=== PATIENT | male | born 1955 | race Caucasian/White ===

== ENCOUNTER 2023-11-30 13:24 | Emergency (ER) | payer MEDICARE ==
[2023-11-30] MEDS ORDERED: Sodium Chloride 0.9% 10 ML Syringe FLUSH PRN (14:03)
== END 2023-11-30 14:25 | disposition left against medical advice (07) ==
LOC: JD.ED 13:24
DX: Z53.21 Procedure and treatment not carried out due to patient leaving prior to being seen by health care provider (principal)

== ENCOUNTER 2024-02-12 15:16 | Emergency (ER) | payer MEDICARE ==
[2024-02-12] MEDS: HYDROmorphone 0.5 MG/0.5 ML Syringe IVPUSH ONE (16:08)
[2024-02-12] MEDS: Sodium Chloride 0.9% 1,000 ML IV SCH (16:11)
[2024-02-12] MEDS: Sodium Chloride 0.9% 10 ML Syringe FLUSH PRN (16:11)
[2024-02-12 16:14] LABS: BASOPHILS PERCENT AUTO 0.3 % (0.0-1.0); EOSINOPHILS ABSOLUTE AUTO 0.1 K/mm3 (0.0-0.4); EOSINOPHILS PERCENT AUTO 0.7 % (0.0-6.0); HEMATOCRIT 44.3 % (42.0-52.0); HEMOGLOBIN 14.7 gm/dl (14.0-18.0); IMMATURE GRAN ABSOLUTE AUTO 0.04 K/mm3 (0.00-0.05); IMMATURE GRAN PERCENT AUTO 0.3 % (0.0-0.4); LYMPHOCYTES ABSOLUTE AUTO 1.3 K/mm3 (1.0-4.8); LYMPHOCYTES PERCENT AUTO 10.1 % (24.0-44.0); MEAN CORPUSCULAR HEMOGLOBIN 32.2 pg (28.0-32.0); MEAN CORPUSCULAR HGB CONC 33.2 g/dl (32.0-36.0); MEAN CORPUSCULAR VOLUME 97.1 fl (83.0-99.0); MEAN PLATELET VOLUME 10.2 fl (9.4-12.4); MONOCYTES ABSOLUTE AUTO 0.8 K/mm3 (0.0-0.8); MONOCYTES PERCENT AUTO 6.5 % (0.0-8.0); NEUTROPHILS ABSOLUTE AUTO 10.5 K/mm3 (1.8-7.7); NEUTROPHILS PERCENT AUTO 82.1 % (41.0-71.0); PLATELET COUNT,PLT 176 K/mm3 (150-400); RED BLOOD CELL COUNT 4.56 M/mm3 (4.52-5.90); WHITE BLOOD CELL COUNT,WBC 12.82 K/mm3 (3.9-11.3)
[2024-02-12 16:20] LABS: APPEARANCE,URINE CLOUDY (Clear); BILIRUBIN,URINE NEGATIVE (Negative); COLOR,URINE AMBER (Yellow); GLUCOSE,URINE NEGATIVE (Negative); KETONES,URINE NEGATIVE (Negative); LEUKOCYTE ESTERASE,URINE 1+ (Negative); NITRITE,URINE POSITIVE (Negative); OCCULT BLOOD,URINE 3+ (Negative); PROTEIN,URINE 2+ (Negative)
[2024-02-12 16:29] LABS: BACTERIA,URINE MODERATE /hpf (FEW); MUCUS,URINE FEW /hpf (FEW); RBC,URINE 75-100 /hpf (0-5); SQUAMOUS EPITHELIAL CELLS,UR 0-5 /hpf (0-5); WBC,URINE 50-75 /hpf (0-5)
[2024-02-12 16:41] LABS: A/G RATIO 0.9 (1-2); ALANINE AMINOTRANSFERASE,ALT 21 U/L (16-63); ALBUMIN 3.2 g/dl (3.4-5.0); ALKALINE PHOSPHATASE 78 U/L (46-116); ANION GAP 12.2 (5-15); ASPARTATE AMNIOTRANSFERASE,AST 13 U/L (15-37); BILIRUBIN TOTAL 0.6 mg/dL (0.2-1.0); BLOOD UREA NITROGEN,BUN 25 mg/dL (7-18); BUN/CREATININE RATIO 19.2 (14-18); CARBON DIOXIDE,CO2 29 mEq/L (21-32); CHLORIDE,CL 104 mEq/L (98-107); CREATININE 1.3 mg/dL (0.7-1.3); ESTIMATED GFR 60 mL/min (>60); GLUCOSE RANDOM 138 mg/dL (70-99); LIPASE 54 U/L (16-77); POTASSIUM,K 4.2 mEq/L (3.5-5.1); PROTEIN TOTAL,TP 6.8 g/dl (6.4-8.2); SODIUM,NA 141 mEq/L (136-145)
== END 2024-02-12 18:24 | disposition home or self-care (01) ==
LOC: JD.ED 15:16
DX: N39.0 Urinary tract infection, site not specified (principal); J44.9 Chronic obstructive pulmonary disease, unspecified; F17.210 Nicotine dependence, cigarettes, uncomplicated; E11.9 Type 2 diabetes mellitus without complications; Z95.5 Presence of coronary angioplasty implant and graft
CPT/HCPCS: 36415; 74176; 80053; 81001; 83690; 85025; 87086; 96361; 96374; 99284; J1170; J3490; J7030; 87088; 87186

== ENCOUNTER 2024-02-17 14:18 | Inpatient (IN) | payer MEDICARE ==
[2024-02-17] MEDS: Morphine 4 MG/ML Syringe IVPUSH ONE ×2 (15:35→18:11)
[2024-02-17 15:55] LABS: BASOPHILS ABSOLUTE AUTO 0.1 K/mm3 (0.0-0.2); BASOPHILS PERCENT AUTO 0.8 % (0.0-1.0); EOSINOPHILS ABSOLUTE AUTO 0.1 K/mm3 (0.0-0.4); EOSINOPHILS PERCENT AUTO 0.6 % (0.0-6.0); HEMATOCRIT 46.7 % (42.0-52.0); HEMOGLOBIN 15.6 gm/dl (14.0-18.0); IMMATURE GRAN ABSOLUTE AUTO 0.05 K/mm3 (0.00-0.05); IMMATURE GRAN PERCENT AUTO 0.4 % (0.0-0.4); LYMPHOCYTES ABSOLUTE AUTO 1.9 K/mm3 (1.0-4.8); LYMPHOCYTES PERCENT AUTO 16.1 % (24.0-44.0); MEAN CORPUSCULAR HEMOGLOBIN 32.4 pg (28.0-32.0); MEAN CORPUSCULAR HGB CONC 33.4 g/dl (32.0-36.0); MEAN CORPUSCULAR VOLUME 97.1 fl (83.0-99.0); MEAN PLATELET VOLUME 10.3 fl (9.4-12.4); MONOCYTES ABSOLUTE AUTO 0.7 K/mm3 (0.0-0.8); MONOCYTES PERCENT AUTO 6.3 % (0.0-8.0); NEUTROPHILS ABSOLUTE AUTO 8.7 K/mm3 (1.8-7.7); NEUTROPHILS PERCENT AUTO 75.8 % (41.0-71.0); PLATELET COUNT,PLT 218 K/mm3 (150-400); RED BLOOD CELL COUNT 4.81 M/mm3 (4.52-5.90); WHITE BLOOD CELL COUNT,WBC 11.48 K/mm3 (3.9-11.3)
[2024-02-17 15:58] LABS: APPEARANCE,URINE TURBID (Clear); BILIRUBIN,URINE 1+ (Negative); COLOR,URINE BROWN (Yellow); GLUCOSE,URINE NEGATIVE (Negative); KETONES,URINE NEGATIVE (Negative); LEUKOCYTE ESTERASE,URINE 3+ (Negative); NITRITE,URINE POSITIVE (Negative); OCCULT BLOOD,URINE 3+ (Negative); PROTEIN,URINE 2+ (Negative)
[2024-02-17 16:31] LABS: ALBUMIN 3.5 g/dl (3.4-5.0); ANION GAP 16.8 (5-15); BILIRUBIN TOTAL 0.5 mg/dL (0.2-1.0); BUN/CREATININE RATIO 19.2 (14-18); CALCIUM 9.3 mg/dL (8.5-10.1); CREATININE 1.3 mg/dL (0.7-1.3); EST CRCL DRUG DOSING (CG) 48.85 mL/min; POTASSIUM,K 4.8 mEq/L (3.5-5.1); PROTEIN TOTAL,TP 7.2 g/dl (6.4-8.2)
[2024-02-17 16:41] LABS: BACTERIA,URINE MODERATE /hpf (FEW); RBC,URINE >100 /hpf (0-5); SQUAMOUS EPITHELIAL CELLS,UR 0-5 /hpf (0-5)
[2024-02-17 16:42] LABS: MUCUS,URINE FEW /hpf (FEW)
[2024-02-17] MEDS: Sodium Chloride 0.9% 1,000 ML IV ONE (18:17)
[2024-02-17] MEDS: Piperacillin/Tazobactam 4.5 GM in Sodium Chloride 0.9% 100 ML IV ONE (18:17)
[2024-02-17] MEDS ORDERED: Ondansetron 4 MG/2 ML SDV IV PRN (18:56)
[2024-02-17] MEDS ORDERED: Polyethylene Glycol 3350 Powder 17 GM Packet PO PRN (18:56)
[2024-02-17] MEDS ORDERED: Docusate Sodium 100 MG Cap PO PRN (18:56)
[2024-02-17] MEDS ORDERED: Ondansetron 4 MG Tab.DIS PO PRN (18:56)
[2024-02-17] MEDS: Morphine 2 MG/ML SYRINGE IVPUSH PRN (21:27)
[2024-02-17] MEDS: Dextrose 5%-0.45% NaCl 1,000 ML IV SCH (21:31)
[2024-02-17] MEDS: Nicotine 21 MG/24 Hr Patch TRDERM SCH (22:31)
[2024-02-17] MEDS: Heparin Sodium 5,000 Units/ML Vial SUBCUT SCH (22:32)
[2024-02-17] MEDS: Piperacillin/Tazobactam 4.5 GM in Sodium Chloride 0.9% 100 ML IV SCH ×2 (22:36→23:00)
[2024-02-17] MEDS: Acetaminophen/HYDROcodone 325-5 MG Tab PO PRN (22:37)
[2024-02-18] MEDS: Oxybutynin 5 MG Tab PO PRN (07:44)
[2024-02-18 08:18] LABS: BASOPHILS ABSOLUTE AUTO 0.1 K/mm3 (0.0-0.2); BASOPHILS PERCENT AUTO 0.7 % (0.0-1.0); EOSINOPHILS ABSOLUTE AUTO 0.4 K/mm3 (0.0-0.4); EOSINOPHILS PERCENT AUTO 3.2 % (0.0-6.0); HEMOGLOBIN 14.6 gm/dl (14.0-18.0); IMMATURE GRAN ABSOLUTE AUTO 0.06 K/mm3 (0.00-0.05); IMMATURE GRAN PERCENT AUTO 0.5 % (0.0-0.4); LYMPHOCYTES ABSOLUTE AUTO 2.8 K/mm3 (1.0-4.8); LYMPHOCYTES PERCENT AUTO 24.9 % (24.0-44.0); MEAN CORPUSCULAR HEMOGLOBIN 32.8 pg (28.0-32.0); MEAN CORPUSCULAR VOLUME 96.6 fl (83.0-99.0); MEAN PLATELET VOLUME 10.1 fl (9.4-12.4); MONOCYTES ABSOLUTE AUTO 0.9 K/mm3 (0.0-0.8); MONOCYTES PERCENT AUTO 7.9 % (0.0-8.0); NEUTROPHILS ABSOLUTE AUTO 7.1 K/mm3 (1.8-7.7); NEUTROPHILS PERCENT AUTO 62.8 % (41.0-71.0); PLATELET COUNT,PLT 200 K/mm3 (150-400); RED BLOOD CELL COUNT 4.45 M/mm3 (4.52-5.90); WHITE BLOOD CELL COUNT,WBC 11.26 K/mm3 (3.9-11.3)
[2024-02-18] MEDS: Pantoprazole 40 MG Tab.CR PO SCH (08:28)
[2024-02-18] MEDS: Tamsulosin 0.4 MG Cap.ER PO SCH (08:28)
[2024-02-18] MEDS: DULoxetine 30 MG Cap PO SCH ×2 (08:28→20:28)
[2024-02-18 08:40] LABS: BUN/CREATININE RATIO 22.1 (14-18); CALCIUM 8.9 mg/dL (8.5-10.1); CREATININE 1.4 mg/dL (0.7-1.3); EST CRCL DRUG DOSING (CG) 44.65 mL/min
[2024-02-18] MEDS: Polyethylene Glycol 3350 Powder 17 GM Packet PO SCH (09:55)
[2024-02-18] MEDS: Sennosides/Docusate Sodium 50-8.6 MG Tab PO SCH (09:55)
[2024-02-18] MEDS: HYDROmorphone 0.5 MG/0.5 ML Syringe IVPUSH PRN (09:55)
[2024-02-18] MEDS: oxyCODONE 5 MG Tab PO PRN (18:37)
[2024-02-18] MEDS: traZODone 50 MG Tab PO SCH (20:27)
[2024-02-18] MEDS: Gabapentin 300 MG Cap PO SCH (20:28)
[2024-02-19] MEDS: Acetaminophen 325 MG Tab PO PRN (04:02)
[2024-02-19 05:33] LABS: BUN/CREATININE RATIO 21.4 (14-18); CALCIUM 8.4 mg/dL (8.5-10.1); CREATININE 1.4 mg/dL (0.7-1.3); EST CRCL DRUG DOSING (CG) 45.52 mL/min
[2024-02-19 05:48] LABS: BASOPHILS ABSOLUTE AUTO 0.1 K/mm3 (0.0-0.2); BASOPHILS PERCENT AUTO 0.8 % (0.0-1.0); EOSINOPHILS ABSOLUTE AUTO 0.5 K/mm3 (0.0-0.4); EOSINOPHILS PERCENT AUTO 5.5 % (0.0-6.0); HEMATOCRIT 38.5 % (42.0-52.0); IMMATURE GRAN ABSOLUTE AUTO 0.05 K/mm3 (0.00-0.05); IMMATURE GRAN PERCENT AUTO 0.6 % (0.0-0.4); LYMPHOCYTES ABSOLUTE AUTO 2.6 K/mm3 (1.0-4.8); LYMPHOCYTES PERCENT AUTO 31.9 % (24.0-44.0); MEAN CORPUSCULAR HEMOGLOBIN 31.8 pg (28.0-32.0); MEAN CORPUSCULAR HGB CONC 33.2 g/dl (32.0-36.0); MEAN CORPUSCULAR VOLUME 95.8 fl (83.0-99.0); MEAN PLATELET VOLUME 10.7 fl (9.4-12.4); MONOCYTES ABSOLUTE AUTO 0.7 K/mm3 (0.0-0.8); MONOCYTES PERCENT AUTO 8.8 % (0.0-8.0); NEUTROPHILS ABSOLUTE AUTO 4.3 K/mm3 (1.8-7.7); NEUTROPHILS PERCENT AUTO 52.4 % (41.0-71.0); PLATELET COUNT,PLT 193 K/mm3 (150-400); RED BLOOD CELL COUNT 4.02 M/mm3 (4.52-5.90); WHITE BLOOD CELL COUNT,WBC 8.25 K/mm3 (3.9-11.3)
[2024-02-19 05:51] LABS: HEMOGLOBIN 12.8 gm/dl (14.0-18.0)
== END 2024-02-19 09:47 | disposition home or self-care (01) | DRG 690 ==
LOC: JD.ED 14:18 → JD.MS 18:56
PROVIDERS: ADMIT Hospitalist; ATTEND Hospitalist
DX: N10 Acute pyelonephritis (principal); R65.10 Systemic inflammatory response syndrome (SIRS) of non-infectious origin without acute organ dysfunction; C66.1 Malignant neoplasm of right ureter; N12 Tubulo-interstitial nephritis, not specified as acute or chronic; J44.9 Chronic obstructive pulmonary disease, unspecified; C67.9 Malignant neoplasm of bladder, unspecified; I25.10 Atherosclerotic heart disease of native coronary artery without angina pectoris; F41.9 Anxiety disorder, unspecified; F32.A Depression, unspecified; E11.9 Type 2 diabetes mellitus without complications; Z66 Do not resuscitate; F17.210 Nicotine dependence, cigarettes, uncomplicated; I10 Essential (primary) hypertension; K59.00 Constipation, unspecified; B96.5 Pseudomonas (aeruginosa) (mallei) (pseudomallei) as the cause of diseases classified elsewhere; C61 Malignant neoplasm of prostate; Z79.899 Other long term (current) drug therapy; Z79.2 Long term (current) use of antibiotics; Z85.528 Personal history of other malignant neoplasm of kidney; Z97.8 Presence of other specified devices; I25.2 Old myocardial infarction; Z95.5 Presence of coronary angioplasty implant and graft; Z98.890 Other specified postprocedural states; Z90.5 Acquired absence of kidney
CPT/HCPCS: 36415; 80053; 81001; 83605; 85025; 87040 ×2; J2270 ×2; J2543; J3490; J7030; 80048; 83735; 96374; 96376; 99223; 99233; 99239; 99284; 99284-25; A9270-GY; J1170; J1644; J7042

== ENCOUNTER 2024-02-23 15:22 | Emergency (ER) | payer MEDICARE ==
[2024-02-23 17:09] LABS: BASOPHILS ABSOLUTE AUTO 0.1 K/mm3 (0.0-0.2); BASOPHILS PERCENT AUTO 0.5 % (0.0-1.0); EOSINOPHILS ABSOLUTE AUTO 0.1 K/mm3 (0.0-0.4); EOSINOPHILS PERCENT AUTO 0.7 % (0.0-6.0); HEMATOCRIT 46.2 % (42.0-52.0); HEMOGLOBIN 15.1 gm/dl (14.0-18.0); IMMATURE GRAN ABSOLUTE AUTO 0.05 K/mm3 (0.00-0.05); IMMATURE GRAN PERCENT AUTO 0.4 % (0.0-0.4); LYMPHOCYTES ABSOLUTE AUTO 1.9 K/mm3 (1.0-4.8); LYMPHOCYTES PERCENT AUTO 17.1 % (24.0-44.0); MEAN CORPUSCULAR HEMOGLOBIN 32.1 pg (28.0-32.0); MEAN CORPUSCULAR HGB CONC 32.7 g/dl (32.0-36.0); MEAN CORPUSCULAR VOLUME 98.1 fl (83.0-99.0); MEAN PLATELET VOLUME 9.7 fl (9.4-12.4); MONOCYTES ABSOLUTE AUTO 0.7 K/mm3 (0.0-0.8); MONOCYTES PERCENT AUTO 6.2 % (0.0-8.0); NEUTROPHILS ABSOLUTE AUTO 8.4 K/mm3 (1.8-7.7); NEUTROPHILS PERCENT AUTO 75.1 % (41.0-71.0); PLATELET COUNT,PLT 240 K/mm3 (150-400); RED BLOOD CELL COUNT 4.71 M/mm3 (4.52-5.90); WHITE BLOOD CELL COUNT,WBC 11.13 K/mm3 (3.9-11.3)
[2024-02-23] MEDS: HYDROmorphone 0.5 MG/0.5 ML Syringe IM ONE (17:19)
[2024-02-23 17:26] LABS: A/G RATIO 0.9 (1-2); ALBUMIN 3.3 g/dl (3.4-5.0); ANION GAP 12.4 (5-15); BILIRUBIN TOTAL 0.4 mg/dL (0.2-1.0); BUN/CREATININE RATIO 19.2 (14-18); CALCIUM 9.4 mg/dL (8.5-10.1); CREATININE 1.2 mg/dL (0.7-1.3); EST CRCL DRUG DOSING (CG) 51.79 mL/min; POTASSIUM,K 4.4 mEq/L (3.5-5.1)
[2024-02-23 18:32] LABS: APPEARANCE,URINE CLEAR (Clear); BILIRUBIN,URINE NEGATIVE (Negative); COLOR,URINE YELLOW (Yellow); GLUCOSE,URINE NEGATIVE (Negative); KETONES,URINE NEGATIVE (Negative); LEUKOCYTE ESTERASE,URINE TRACE (Negative); NITRITE,URINE NEGATIVE (Negative); OCCULT BLOOD,URINE 2+ (Negative); PH,URINE 6.5 (5.0-8.0); PROTEIN,URINE NEGATIVE (Negative); UROBILINOGEN,URINE 0.2 (0.2-1.0)
[2024-02-23 19:23] LABS: BACTERIA,URINE FEW /hpf (FEW); MUCUS,URINE FEW /hpf (FEW); SQUAMOUS EPITHELIAL CELLS,UR 0-5 /hpf (0-5)
[2024-02-23] MEDS: oxyCODONE 5 MG Tab PO ONE (19:33)
== END 2024-02-23 20:27 | disposition home or self-care (01) ==
LOC: JD.ED 15:22
DX: M46.1 Sacroiliitis, not elsewhere classified (principal); G89.3 Neoplasm related pain (acute) (chronic); I25.2 Old myocardial infarction; I25.10 Atherosclerotic heart disease of native coronary artery without angina pectoris; J44.9 Chronic obstructive pulmonary disease, unspecified; E11.9 Type 2 diabetes mellitus without complications; Z95.5 Presence of coronary angioplasty implant and graft; Z79.899 Other long term (current) drug therapy
CPT/HCPCS: 36415; 73502; 80053; 81001; 85025; 87086; 96372; 99283; A9270; J1170; 99284

== ENCOUNTER 2024-04-16 21:37 | Emergency (ER) | payer MEDICARE, MEDICAID ==
[2024-04-16 23:04] LABS: BASOPHILS ABSOLUTE AUTO 0.1 K/mm3 (0.0-0.2); BASOPHILS PERCENT AUTO 0.6 % (0.0-1.0); EOSINOPHILS ABSOLUTE AUTO 0.2 K/mm3 (0.0-0.4); HEMATOCRIT 41.3 % (42.0-52.0); HEMOGLOBIN 13.7 gm/dl (14.0-18.0); IMMATURE GRAN ABSOLUTE AUTO 0.01 K/mm3 (0.00-0.05); IMMATURE GRAN PERCENT AUTO 0.1 % (0.0-0.4); LYMPHOCYTES ABSOLUTE AUTO 1.9 K/mm3 (1.0-4.8); LYMPHOCYTES PERCENT AUTO 22.1 % (24.0-44.0); MEAN CORPUSCULAR HEMOGLOBIN 31.3 pg (28.0-32.0); MEAN CORPUSCULAR HGB CONC 33.2 g/dl (32.0-36.0); MEAN CORPUSCULAR VOLUME 94.3 fl (83.0-99.0); MONOCYTES PERCENT AUTO 10.9 % (0.0-8.0); NEUTROPHILS ABSOLUTE AUTO 5.6 K/mm3 (1.8-7.7); NEUTROPHILS PERCENT AUTO 64.3 % (41.0-71.0); PLATELET COUNT,PLT 198 K/mm3 (150-400); RED BLOOD CELL COUNT 4.38 M/mm3 (4.52-5.90)
[2024-04-16 23:26] LABS: A/G RATIO 0.9 (1-2); ALBUMIN 2.9 g/dl (3.4-5.0); ANION GAP 12.1 (5-15); BILIRUBIN TOTAL 0.3 mg/dL (0.2-1.0); BUN/CREATININE RATIO 15.4 (14-18); CALCIUM 8.9 mg/dL (8.5-10.1); CREATININE 1.3 mg/dL (0.7-1.3); EST CRCL DRUG DOSING (CG) 53.04 mL/min; POTASSIUM,K 4.1 mEq/L (3.5-5.1)
== END 2024-04-17 00:38 | disposition home or self-care (01) ==
LOC: JD.ED 21:37
DX: N30.00 Acute cystitis without hematuria (principal); I10 Essential (primary) hypertension; I25.10 Atherosclerotic heart disease of native coronary artery without angina pectoris; J44.9 Chronic obstructive pulmonary disease, unspecified; I25.2 Old myocardial infarction; E11.9 Type 2 diabetes mellitus without complications; Z79.899 Other long term (current) drug therapy; Z95.5 Presence of coronary angioplasty implant and graft
CPT/HCPCS: 36415; 74176; 74176-26; 80053; 83690; 85025; 99284

== ENCOUNTER 2024-05-01 04:59 | Emergency (ER) | payer MEDICARE, MEDICAID ==
[2024-05-01] MEDS: Morphine 4 MG/ML Syringe IVPUSH ONE ×2 (05:34→07:38)
[2024-05-01] MEDS: Famotidine 20 MG/2 ML SDV IVPUSH ONE (05:35)
[2024-05-01] MEDS: Ondansetron 4 MG/2 ML SDV IVPUSH ONE (05:35)
[2024-05-01] MEDS: Sodium Chloride 0.9% 1,000 ML IV SCH (05:36)
[2024-05-01 05:44] LABS: BASOPHILS ABSOLUTE AUTO 0.1 K/mm3 (0.0-0.2); BASOPHILS PERCENT AUTO 0.2 % (0.0-1.0); HEMATOCRIT 40.4 % (42.0-52.0); HEMOGLOBIN 13.2 gm/dl (14.0-18.0); IMMATURE GRAN ABSOLUTE AUTO 0.21 K/mm3 (0.00-0.05); IMMATURE GRAN PERCENT AUTO 0.8 % (0.0-0.4); LYMPHOCYTES PERCENT AUTO 3.8 % (24.0-44.0); MEAN CORPUSCULAR HEMOGLOBIN 30.6 pg (28.0-32.0); MEAN CORPUSCULAR HGB CONC 32.7 g/dl (32.0-36.0); MEAN CORPUSCULAR VOLUME 93.5 fl (83.0-99.0); MEAN PLATELET VOLUME 9.4 fl (9.4-12.4); MONOCYTES ABSOLUTE AUTO 1.5 K/mm3 (0.0-0.8); MONOCYTES PERCENT AUTO 6.1 % (0.0-8.0); NEUTROPHILS ABSOLUTE AUTO 22.1 K/mm3 (1.8-7.7); NEUTROPHILS PERCENT AUTO 89.1 % (41.0-71.0); PLATELET COUNT,PLT 626 K/mm3 (150-400); RED BLOOD CELL COUNT 4.32 M/mm3 (4.52-5.90); WHITE BLOOD CELL COUNT,WBC 24.83 K/mm3 (3.9-11.3)
[2024-05-01] MEDS: Sodium Chloride 0.9% 10 ML Syringe FLUSH PRN ×2 (05:46→06:51)
[2024-05-01 06:04] LABS: INR 1.02; PROTHROMBIN TIME 10.9 SECONDS (9.7-12.0)
[2024-05-01 06:06] LABS: PTT,PARTIAL THROMBOPLSTIN TIME 24.5 SECONDS (21.7-31.4)
[2024-05-01 06:09] LABS: A/G RATIO 0.7 (1-2); ANION GAP 14.7 (5-15); BILIRUBIN TOTAL 0.7 mg/dL (0.2-1.0); BUN/CREATININE RATIO 18.8 (14-18); CALCIUM 9.6 mg/dL (8.5-10.1); CREATININE 1.7 mg/dL (0.7-1.3); EST CRCL DRUG DOSING (CG) 40.29 mL/min; POTASSIUM,K 3.7 mEq/L (3.5-5.1); PROTEIN TOTAL,TP 7.5 g/dl (6.4-8.2)
[2024-05-01 06:15] LABS: D-DIMER QUANTITATIVE 1.81 mg/L (0.19-0.50)
[2024-05-01] MEDS ORDERED: Sodium Chloride 0.9% 1,000 ML IV SCH (06:15)
[2024-05-01 06:17] LABS: SLIDE REVIEW ABNORMAL SMEAR
[2024-05-01 06:38] LABS: LACTIC ACID 2.8 mmol/L (0.4-2.0)
[2024-05-01] MEDS: Piperacillin/Tazobactam 4.5 GM in Sodium Chloride 0.9% 100 ML IV STA (06:48)
[2024-05-01] MEDS: Lactated Ringers 1,000 ML IV ONE (07:10)
[2024-05-01] MEDS: Pantoprazole 40 MG Vial IVPUSH ONE (07:37)
[2024-05-01] MEDS: Sodium Chloride 0.9% 100 ML IV SCH (07:39)
[2024-05-01] MEDS: Iopamidol 755 Mg/ML 100 ML Bottle IVPUSH ONE (07:39)
[2024-05-01] MEDS: HYDROmorphone 0.5 MG/0.5 ML Syringe IVPUSH ONE ×2 (10:36→18:23)
[2024-05-01] MEDS: Benzocaine 20% Topical Spray UD MUCMEM ONE (10:57)
[2024-05-01 11:02] LABS: APPEARANCE,URINE CLOUDY (Clear); BILIRUBIN,URINE NEGATIVE (Negative); COLOR,URINE YELLOW (Yellow); GLUCOSE,URINE NEGATIVE (Negative); KETONES,URINE NEGATIVE (Negative); LEUKOCYTE ESTERASE,URINE TRACE (Negative); NITRITE,URINE POSITIVE (Negative); OCCULT BLOOD,URINE 3+ (Negative); PROTEIN,URINE 3+ (Negative); UROBILINOGEN,URINE 0.2 (0.2-1.0)
[2024-05-01 11:44] LABS: BACTERIA,URINE MODERATE /hpf (FEW); MUCUS,URINE NOT SEEN /hpf (FEW); RBC,URINE >100 /hpf (0-5); SQUAMOUS EPITHELIAL CELLS,UR 0-5 /hpf (0-5); WBC,URINE 0-5 /hpf (0-5); YEAST BUDDING,URINE FEW (NOT SEEN)
[2024-05-01] MEDS: Piperacillin/Tazobactam 4.5 GM in Sodium Chloride 0.9% 100 ML IV SCH (15:07)
== END 2024-05-01 19:08 ==
LOC: JD.ED 04:59
DX: A41.9 Sepsis, unspecified organism (principal); R65.20 Severe sepsis without septic shock; K65.1 Peritoneal abscess; K56.609 Unspecified intestinal obstruction, unspecified as to partial versus complete obstruction; G89.18 Other acute postprocedural pain; E86.0 Dehydration; I25.10 Atherosclerotic heart disease of native coronary artery without angina pectoris; I10 Essential (primary) hypertension; I25.2 Old myocardial infarction; J44.9 Chronic obstructive pulmonary disease, unspecified; E11.9 Type 2 diabetes mellitus without complications; Z79.899 Other long term (current) drug therapy; Z95.5 Presence of coronary angioplasty implant and graft; Z87.891 Personal history of nicotine dependence
CPT/HCPCS: 36415; 43752; 71045; 71275; 74177; 80053; 81001; 83605; 83690; 83880; 84484; 85025; 85379; 85610; 85730; 87040; 87086; 93005; 96361; 96365; 96366; 96375; 96376; 99285; C9113; J1170; J2270; J2405; J2543; J3490; J7030; J7120; Q9967; 93010

== ENCOUNTER 2024-07-01 21:11 | Inpatient (IN) | payer MEDICARE, MEDICAID ==
[2024-07-01] MEDS: methylPREDNISolone Sodium Succinate 125 MG/2 ML SDV IVPUSH ONE (21:35)
[2024-07-01] MEDS: Sodium Chloride 0.9% 10 ML Syringe FLUSH PRN (21:36)
[2024-07-01] MEDS: Albuterol/Ipratropium 3.0-0.5 MG/3 ML Neb Soln NEB ONE (21:42)
[2024-07-01 21:45] LABS: BASOPHILS ABSOLUTE AUTO 0.1 K/mm3 (0.0-0.2); BASOPHILS PERCENT AUTO 0.5 % (0.0-1.0); EOSINOPHILS ABSOLUTE AUTO 0.1 K/mm3 (0.0-0.4); HEMATOCRIT 33.9 % (42.0-52.0); HEMOGLOBIN 10.3 gm/dl (14.0-18.0); IMMATURE GRAN ABSOLUTE AUTO 0.02 K/mm3 (0.00-0.05); IMMATURE GRAN PERCENT AUTO 0.2 % (0.0-0.4); LYMPHOCYTES ABSOLUTE AUTO 1.4 K/mm3 (1.0-4.8); LYMPHOCYTES PERCENT AUTO 15.1 % (24.0-44.0); MEAN CORPUSCULAR HEMOGLOBIN 27.5 pg (28.0-32.0); MEAN CORPUSCULAR HGB CONC 30.4 g/dl (32.0-36.0); MEAN CORPUSCULAR VOLUME 90.6 fl (83.0-99.0); MEAN PLATELET VOLUME 10.5 fl (9.4-12.4); MONOCYTES ABSOLUTE AUTO 0.6 K/mm3 (0.0-0.8); MONOCYTES PERCENT AUTO 6.8 % (0.0-8.0); NEUTROPHILS ABSOLUTE AUTO 7.2 K/mm3 (1.8-7.7); NEUTROPHILS PERCENT AUTO 76.4 % (41.0-71.0); PLATELET COUNT,PLT 303 K/mm3 (150-400); RED BLOOD CELL COUNT 3.74 M/mm3 (4.52-5.90); WHITE BLOOD CELL COUNT,WBC 9.36 K/mm3 (3.9-11.3)
[2024-07-01 21:56] LABS: A/G RATIO 0.8 (1-2); ANION GAP 12.6 (5-15); BILIRUBIN TOTAL 0.6 mg/dL (0.2-1.0); BUN/CREATININE RATIO 10.6 (14-18); CALCIUM 8.5 mg/dL (8.5-10.1); CREATININE 1.7 mg/dL (0.7-1.3); EST CRCL DRUG DOSING (CG) 44.29 mL/min; POTASSIUM,K 2.6 mEq/L (3.5-5.1)
[2024-07-01] MEDS: Furosemide 20 MG/2 ML VIAL IVPUSH ONE (22:47)
[2024-07-01] MEDS: Potassium Chloride 10 MEQ in Premix Bag 1 BAG IV SCH (22:48)
[2024-07-02 05:04] LABS: A/G RATIO 0.7 (1-2); ALBUMIN 2.6 g/dl (3.4-5.0); ANION GAP 10.9 (5-15); BILIRUBIN TOTAL 0.4 mg/dL (0.2-1.0); BUN/CREATININE RATIO 9.4 (14-18); CALCIUM 8.4 mg/dL (8.5-10.1); CREATININE 1.8 mg/dL (0.7-1.3); EST CRCL DRUG DOSING (CG) 41.83 mL/min; POTASSIUM,K 2.9 mEq/L (3.5-5.1); PROTEIN TOTAL,TP 6.3 g/dl (6.4-8.2)
[2024-07-02] MEDS: Potassium Chloride 10 MEQ in Premix Bag 1 BAG IV SCH (06:20)
[2024-07-02] MEDS: Potassium Chloride 20 MEQ Tab.ER PO ONE ×2 (06:20→15:15)
[2024-07-02] MEDS: HYDROmorphone 0.5 MG/0.5 ML Syringe IVPUSH ONE (06:54)
[2024-07-02] MEDS: Morphine 2 MG/ML SYRINGE IVPUSH PRN (09:12)
[2024-07-02] MEDS ORDERED: fentaNYL 12 MCG/HR Transdermal Patch TRDERM SCH (09:15)
[2024-07-02 10:33] LABS: HEMOGLOBIN A1C 6.1 %
[2024-07-02] MEDS: Heparin Sodium 5,000 Units/ML Vial IVPUSH ONE ×2 (10:49→18:58)
[2024-07-02] MEDS: Furosemide 40 MG/4 ML VIAL IVPUSH ONE (10:49)
[2024-07-02] MEDS: Azithromycin 500 MG in Sodium Chloride 0.9% 250 ML IV SCH (10:51)
[2024-07-02 10:55] LABS: TSH 0.089 uIU/mL (0.358-3.74)
[2024-07-02] MEDS: Heparin Sodium/D5W 25,000 UNITS/500 ML BAG IV SCH (11:20)
[2024-07-02 11:47] LABS: T4 FREE 1.18 ng/dL (0.76-1.46)
[2024-07-02] MEDS: oxyCODONE 5 MG Tab PO PRN (14:08)
[2024-07-02] MEDS: Sennosides/Docusate Sodium 50-8.6 MG Tab PO SCH (14:09)
[2024-07-02] MEDS: Polyethylene Glycol 3350 Powder 17 GM Packet PO SCH (14:09)
[2024-07-02] MEDS ORDERED: 50% Dextrose in Water 50 ML Syringe IVPUSH PRN (14:26)
[2024-07-02] MEDS: Lactulose Soln 10 GM/15 ML 30 ML UD Cup PO SCH (14:26)
[2024-07-02] MEDS: Albuterol/Ipratropium 3.0-0.5 MG/3 ML Neb Soln NEB SCH (14:32)
[2024-07-02] MEDS: Magnesium Sulfate/Water 2 GM in Premix Bag 1 BAG IV ONE (14:50)
[2024-07-02] MEDS: LORazepam 2 MG/ML SDV IVPUSH PRN (15:08)
[2024-07-02] MEDS: cefTRIAXone 2 GM in Sodium Chloride 0.9% 100 ML IV SCH (15:15)
[2024-07-02] MEDS: Potassium Chloride 10 MEQ in Premix Bag 1 BAG IV ONE (15:15)
[2024-07-02] MEDS: LORazepam 2 MG/ML SDV ONE (15:16)
[2024-07-02] MEDS: DULoxetine 30 MG Cap PO SCH ×3 (15:40→20:33)
[2024-07-02] MEDS: fentaNYL 12 MCG/HR Transdermal Patch TRDERM SCH (16:01)
[2024-07-02] MEDS: Insulin Lispro 100 Unit/ML 3 ML KwikPen SUBCUT SCH (18:13)
[2024-07-02 18:26] LABS: CORONAVIRUS COVID-19 NAA NEGATIVE (NEGATIVE); INFLUENZA A NAA NEGATIVE (NEGATIVE); RESPIRATORY SYNCYTIAL VIR NAA NEGATIVE (NEGATIVE)
[2024-07-02] MEDS: Albuterol/Ipratropium 3.0-0.5 MG/3 ML Neb Soln NEB PRN (20:21)
[2024-07-02] MEDS: traZODone 50 MG Tab PO SCH (20:32)
[2024-07-02] MEDS: Famotidine 20 MG/2 ML SDV IVPUSH SCH (20:33)
[2024-07-02] MEDS ORDERED: DULoxetine 30 MG Cap PO SCH (21:00)
[2024-07-02] MEDS ORDERED: DULoxetine 30 MG Cap PO ONE (21:00)
[2024-07-02] MEDS ORDERED: traZODone 50 MG Tab PO ONE (21:00)
[2024-07-02] MEDS: Melatonin 3 MG Tab PO PRN (21:07)
[2024-07-03] MEDS: Heparin Sodium 5,000 Units/ML Vial IVPUSH ONE ×2 (00:35→14:30)
[2024-07-03 05:13] LABS: BASE EXCESS VENOUS 0.6 (-4.0-2.0); BICARBONATE,VENOUS 25.4 meq/L (22-26); O2 SATURATION VENOUS 94.5; PCO2 VENOUS 44.8 mmHg (41-51); PH,VENOUS 7.37 (7.30-7.40)
[2024-07-03 07:30] LABS: HEMATOCRIT 28.5 % (42.0-52.0); HEMOGLOBIN 8.9 gm/dl (14.0-18.0); MEAN CORPUSCULAR HEMOGLOBIN 27.7 pg (28.0-32.0); MEAN CORPUSCULAR HGB CONC 31.2 g/dl (32.0-36.0); MEAN CORPUSCULAR VOLUME 88.8 fl (83.0-99.0); MEAN PLATELET VOLUME 10.7 fl (9.4-12.4); PLATELET COUNT,PLT 279 K/mm3 (150-400); RED BLOOD CELL COUNT 3.21 M/mm3 (4.52-5.90); WHITE BLOOD CELL COUNT,WBC 10.16 K/mm3 (3.9-11.3)
[2024-07-03 07:48] LABS: ANION GAP 12.9 (5-15); BUN/CREATININE RATIO 14.4 (14-18); C-REACTIVE PROTEIN 1.04 mg/dL (<0.30); CALCIUM 8.1 mg/dL (8.5-10.1); CREATININE 1.6 mg/dL (0.7-1.3); EST CRCL DRUG DOSING (CG) 47.06 mL/min; MAGNESIUM 1.9 mg/dL (1.8-2.4); PHOSPHORUS 3.6 mg/dL (2.6-4.7); POTASSIUM,K 2.9 mEq/L (3.5-5.1)
[2024-07-03] MEDS: fentaNYL 25 MCG/HR Transdermal Patch TRDERM SCH (11:56)
[2024-07-03 12:07] LABS: BASE EXCESS ARTERIAL -0.5 (-2-2.0); BICARBONATE,ARTERIAL 23.4 meq/L (22.0-26.0); O2 SATURATION ARTERIAL 89.6 % (96.0-97.0); PCO2 ARTERIAL 37.8 mmHg (35.0-45.0)
[2024-07-03] MEDS: Furosemide 40 MG/4 ML VIAL IVPUSH ONE (13:13)
[2024-07-03] MEDS: Potassium Chloride 20 MEQ Tab.ER PO ONE (14:27)
[2024-07-03] MEDS: methylPREDNISolone Sodium Succinate 40 MG/1 ML SDV IVPUSH SCH (14:29)
[2024-07-03] MEDS: Potassium Chloride 10 MEQ in Premix Bag 1 BAG IV SCH (14:34)
[2024-07-03] MEDS: Albuterol/Ipratropium 3.0-0.5 MG/3 ML Neb Soln NEB SCH (14:43)
[2024-07-03] MEDS: Famotidine 20 MG Tab PO SCH (20:03)
[2024-07-03] MEDS: Apixaban 5 MG Tab PO SCH (20:30)
[2024-07-04] MEDS: Ondansetron 4 MG/2 ML SDV IV PRN (02:06)
[2024-07-04 04:55] LABS: HEMATOCRIT 29.2 % (42.0-52.0); HEMOGLOBIN 8.8 gm/dl (14.0-18.0); MEAN CORPUSCULAR HEMOGLOBIN 27.2 pg (28.0-32.0); MEAN CORPUSCULAR HGB CONC 30.1 g/dl (32.0-36.0); MEAN CORPUSCULAR VOLUME 90.4 fl (83.0-99.0); MEAN PLATELET VOLUME 10.3 fl (9.4-12.4); PLATELET COUNT,PLT 256 K/mm3 (150-400); RED BLOOD CELL COUNT 3.23 M/mm3 (4.52-5.90); WHITE BLOOD CELL COUNT,WBC 8.44 K/mm3 (3.9-11.3)
[2024-07-04 05:21] LABS: ANION GAP 9.2 (5-15); BUN/CREATININE RATIO 14.7 (14-18); CALCIUM 8.7 mg/dL (8.5-10.1); CREATININE 1.5 mg/dL (0.7-1.3); EST CRCL DRUG DOSING (CG) 50.2 mL/min; POTASSIUM,K 4.2 mEq/L (3.5-5.1)
[2024-07-04] MEDS: Furosemide 40 MG/4 ML VIAL IVPUSH SCH (09:16)
[2024-07-04] MEDS: atorvaSTATin 40 MG Tab PO SCH (09:16)
[2024-07-04] MEDS: Doxycycline 100 MG in Sodium Chloride 0.9% 100 ML IV SCH (09:16)
[2024-07-04] MEDS: Gabapentin 300 MG Cap PO SCH (20:48)
[2024-07-05] MEDS: Furosemide 40 MG/4 ML VIAL IVPUSH SCH (07:51)
[2024-07-05 09:22] LABS: HEMATOCRIT 32.8 % (42.0-52.0); HEMOGLOBIN 10.1 gm/dl (14.0-18.0); MEAN CORPUSCULAR HEMOGLOBIN 27.4 pg (28.0-32.0); MEAN CORPUSCULAR HGB CONC 30.8 g/dl (32.0-36.0); MEAN CORPUSCULAR VOLUME 88.9 fl (83.0-99.0); MEAN PLATELET VOLUME 10.6 fl (9.4-12.4); PLATELET COUNT,PLT 331 K/mm3 (150-400); RED BLOOD CELL COUNT 3.69 M/mm3 (4.52-5.90); WHITE BLOOD CELL COUNT,WBC 12.45 K/mm3 (3.9-11.3)
[2024-07-05 09:45] LABS: ANION GAP 8.6 (5-15); BUN/CREATININE RATIO 22.1 (14-18); CREATININE 1.4 mg/dL (0.7-1.3); EST CRCL DRUG DOSING (CG) 53.79 mL/min; POTASSIUM,K 3.6 mEq/L (3.5-5.1)
[2024-07-05] MEDS: Acetaminophen 325 MG Tab PO PRN (14:41)
== END 2024-07-05 17:55 | disposition home or self-care (01) | DRG 280 ==
LOC: JD.ED 21:11 → JD.MS 07-02 07:24 → JD.ICU 07-02 13:10 → JD.MS 07-04 19:39
PROVIDERS: ADMIT Student in an Organized Health Care Education/Training Program; ATTEND Student in an Organized Health Care Education/Training Program
PROC: 4A133R1 Monitoring of Arterial Saturation, Peripheral, Percutaneous Approach (ICD-10-PCS; principal; 2024-07-03)
DX: I11.0 Hypertensive heart disease with heart failure (principal); I50.9 Heart failure, unspecified; I13.0 Hypertensive heart and chronic kidney disease with heart failure and stage 1 through stage 4 chronic kidney disease, or unspecified chronic kidney disease; I50.21 Acute systolic (congestive) heart failure; D64.9 Anemia, unspecified; I21.A1 Myocardial infarction type 2; E11.65 Type 2 diabetes mellitus with hyperglycemia; J18.9 Pneumonia, unspecified organism; J44.9 Chronic obstructive pulmonary disease, unspecified; J96.01 Acute respiratory failure with hypoxia; D84.9 Immunodeficiency, unspecified; J44.1 Chronic obstructive pulmonary disease with (acute) exacerbation; E87.20 Acidosis, unspecified; N17.9 Acute kidney failure, unspecified; J44.0 Chronic obstructive pulmonary disease with (acute) lower respiratory infection; Z66 Do not resuscitate; F32.A Depression, unspecified; I25.10 Atherosclerotic heart disease of native coronary artery without angina pectoris; I25.2 Old myocardial infarction; K59.03 Drug induced constipation; F41.9 Anxiety disorder, unspecified; N18.9 Chronic kidney disease, unspecified; I48.91 Unspecified atrial fibrillation; G89.29 Other chronic pain; M54.9 Dorsalgia, unspecified; T40.605A Adverse effect of unspecified narcotics, initial encounter; D63.1 Anemia in chronic kidney disease; E87.6 Hypokalemia; G47.00 Insomnia, unspecified; R73.03 Prediabetes; R79.89 Other specified abnormal findings of blood chemistry; Z95.5 Presence of coronary angioplasty implant and graft; Z90.5 Acquired absence of kidney; Z90.79 Acquired absence of other genital organ(s); Z79.899 Other long term (current) drug therapy; Z87.891 Personal history of nicotine dependence
CPT/HCPCS: 0241U; 36415; 36600; 71045; 74019; 80048; 80053; 82803; 82947; 83036; 83605; 83735; 83880; 84100; 84145; 84439; 84443; 84484; 85025; 85027; 85730; 86140; 87040; 87641; 87899; 93005; 93306; 93970; 94640; 94667; 94668; 94760; 94761; 96365; 96366; 96367; 96368; 96375; 96376; 97110; 97162; 99285; 93010; A9270-GY; J0456; J0696; J1170; J1644; J1815; J1940; J2060; J2270; J2405; J2919; J3475; J3480; J3490; J7050; J7620-GY